=== PATIENT | female | born 1960 | race Caucasian/White ===

== ENCOUNTER → 2020-12-27 | Outpatient (CLI) | payer OTHER ==
[~2020-12-27] MED LIST: ASPIR 8181 MG PO; ATIVAN0.5 MG PO; CLARITIN10 MG PO; DITROPAN 5 MG TA5 MG PO; GLUCOTROL5 MG PO; IMDUR ER TAB 3030 MG PO; KENALOG CREAM 015 GM EXT; KEPPRA500 MG PO; LIPITOR20 MG PO; LISINOPRIL2.5 MG PO; LOPRESSOR 25 MG25 MG PO; PLAVIX75 MG PO; PROTONIX40 MG PO; SEROQUEL25 MG PO; ZANTAC150 MG PO; ZOLOFT100 MG PO
[2020-12-27 10:04] LABS: RED BLOOD COUNT 4.72 M/UL (4.00-5.10); WHITE BLOOD COUNT 9.9 K/UL (4.5-11.0)
[2020-12-27 10:27] LABS: BUN/CREATININE RATIO 22 (0-10)
== END ==
LOC: LAB 09:22
PROVIDERS: Registered Nurse Administrator
DX: F39 Unspecified mood [affective] disorder (principal); F71 Moderate intellectual disabilities; Z79.899 Other long term (current) drug therapy
CPT/HCPCS: 36415; 80053; 80061; 83036; 85025

== ENCOUNTER → 2022-05-08 | Outpatient (CLI) | payer OTHER | LOC: RAD 16:19 | DX: R05.9 Cough, unspecified (principal) | CPT/HCPCS: 71046 ==